=== PATIENT | male | born 1970 | race Caucasian/White ===

== ENCOUNTER 2018-02-10 19:32 | Emergency (ER) | payer OTHER ==
[~2018-02-10] VITALS: Ht 177.8 cm; Wt 86.2 kg
[2018-02-10] MEDS ORDERED: diazePAM 5 MG TABLET PO ONE (20:00)
--- NOTE | 2018-02-10 20:04 | PHYS DOC ---
Past Medical History Past Medical History: Anxiety, Diabetes-Type II Additional Past Medical Histor: ALCOHOLISM, OBESITY, Past Surgical History: No Surgical History Alcohol Use: None Drug Use: None Adult General Chief Complaint Chief Complaint: ANXIETY/PANIC ATTACK HPI HPI 47-year-old male with a long history of poorly controlled anxiety presents secondary to a panic attack. Patient states that throughout the day today he is felt a warm sensation come over his body. He states he has been worried about his blood pressure during that time. He's been checking his blood pressure at home multiple times. He denies any shortness of breath or dyspnea on exertion. He states he was in the hospital back in August with a similar episode and had a full cardiac workup all of which was unremarkable. Patient states he's lost 50 pounds since August by design. He denies any headache or lateralizing neurologic symptoms. He has clonazepam that he has been prescribed for these type of episodes that he didn't take it.[] Review of Systems Review of Systems Constitutional: Denies fever or chills [] Eyes: Denies change in visual acuity, redness, or eye pain [] HENT: Denies nasal congestion or sore throat [] Respiratory: Denies cough or shortness of breath [] Cardiovascular: No additional information not addressed in HPI [] GI: Denies abdominal pain, nausea, vomiting, bloody stools or diarrhea [] : Denies dysuria or hematuria [] Musculoskeletal: Denies back pain or joint pain [] Integument: Denies rash or skin lesions [] Neurologic: Denies headache, focal weakness or sensory changes [] Endocrine: Denies polyuria or polydipsia [] Psychiatric: Panic attacks All other systems were reviewed and found to be within normal limits, except as documented in this note. Allergies Allergies Allergies Coded Allergies Type Severity Reaction Last Updated Verified No Known Drug Allergies 02/10/18 No Physical Exam Physical Exam Constitutional: Well developed, well nourished, no acute distress, non-toxic appearance. [] HENT: Normocephalic, atraumatic, bilateral external ears normal, oropharynx moist, no oral exudates, nose normal. [] Eyes: PERRLA, EOMI, conjunctiva normal, no discharge. [] Neck: Normal range of motion, no tenderness, supple, no stridor. [] Cardiovascular:Heart rate regular rhythm, no murmur [] Lungs & Thorax: Bilateral breath sounds clear to auscultation [] Abdomen: Bowel sounds normal, soft, no tenderness, no masses, no pulsatile masses. [] Skin: Warm, dry, no erythema, no rash. [] Back: No tenderness, no CVA tenderness. [] Extremities: No tenderness, no cyanosis, no clubbing, ROM intact, no edema. [] Neurologic: Alert and oriented X 3, normal motor function, normal sensory function, no focal deficits noted. [] Psychologic: Extremely anxious but very pleasant Current Patient Data Vital Signs Vital Signs Date Time Temp Pulse Resp B/P (MAP) Pulse Ox O2 Delivery O2 Flow Rate FiO2 02/10/18 19:51 98.6 74 16 139/90 (106) 98 Room Air 98.6 EKG EKG [] Radiology/Procedures Radiology/Procedures [] Course & Med Decision Making Course & Med Decision Making Pertinent Labs and Imaging studies reviewed. (See chart for details) [ED course: Evaluation reveals a 47-year-old male in the throes of a panic attack. I gave him 10 mg of Valium during his stay in the department. I reassured the patient that he was can be okay. I've encouraged him to take his clonazepam as needed at home. I've also recommended a follow-up with his primary care physician in the very near future to reassess his ongoing anxiety treatment.] Dragon Disclaimer Dragon Disclaimer This electronic medical record was generated, in whole or in part, using a voice recognition dictation system. Departure Departure Impression: Primary Impression: Panic attack Disposition: 01 HOME, SELF-CARE Condition: STABLE Referrals: RILEY VILLAVICENCIO MD (PCP) Patient Instructions: Anxiety and Panic Attacks Additional Instructions: Take your clonazepam as needed for these types of spells. Return to the emergency department with any new or concerning symptoms AYAN TINEO DO Feb 10, 2018 20:04
[2018-02-10 20:17] VITALS: BP 130/81
== END 2018-02-10 20:24 | disposition home or self-care (01) ==
LOC: ER 19:32
DX: F41.0 Panic disorder [episodic paroxysmal anxiety] (principal); F41.9 Anxiety disorder, unspecified; E11.9 Type 2 diabetes mellitus without complications; J45.909 Unspecified asthma, uncomplicated
CPT/HCPCS: 99284